=== PATIENT | male | born 1950 | race Caucasian/White ===

== ENCOUNTER 2021-03-22 15:46 | Emergency (ER) | payer MEDICARE, BC ==
[~2021-03-22] VITALS: Ht 182.9 cm; Wt 79.4 kg
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
--- NOTE | 2021-03-22 15:57 | NUR ---
DR BARBA AT BEDSIDE
--- NOTE | 2021-03-22 16:14 | NUR ---
X RAY AT BEDSIDE
[2021-03-22] MEDS ORDERED: ACETAMINOPHEN ES 500 MG TABLET PO ONE (17:00)
[2021-03-22] MEDS ORDERED: ACETAMINOPHEN ES 500 MG TABLET ONE (17:01)
[2021-03-22] MEDS ORDERED: HYDR-4303 PO (17:11)
--- NOTE | 2021-03-22 18:19 | NUR ---
Patient discharged to home in stable condition. Written and verbal after care instructions given. Patient verbalizes understanding of instruction.
[2021-03-22 18:20] VITALS: BP 153/65
== END 2021-03-22 18:46 | disposition home or self-care (01) ==
LOC: ER 15:56
DX: S62.364A Nondisplaced fracture of neck of fourth metacarpal bone, right hand, initial encounter for closed fracture (principal); S62.392A Other fracture of third metacarpal bone, right hand, initial encounter for closed fracture; S00.83XA Contusion of other part of head, initial encounter; S20.212A Contusion of left front wall of thorax, initial encounter; Z98.890 Other specified postprocedural states; V49.49XA Driver injured in collision with other motor vehicles in traffic accident, initial encounter; Y93.89 Activity, other specified; Y92.413 State road as the place of occurrence of the external cause; Y99.8 Other external cause status
CPT/HCPCS: 71045-TC; 73130-TC